=== PATIENT | female | born 1985 | race Caucasian/White ===

== ENCOUNTER 2018-10-17 17:28 | Emergency (ER) | payer SELFPAY ==
[~2018-10-17] VITALS: Ht 160 cm; Wt 78.5 kg
[2018-10-17 17:56] VITALS: BP 134/77
--- NOTE | 2018-10-17 18:04 | PHYS DOC ---
Adult General Chief Complaint Chief Complaint: DENTAL PROBLEM HPI HPI Patient is a 33 year old female currently 8 months 3 para 2 presenting to the ED today complaining of moderate left lower gum dental pain that began yesterday after she broke her tooth. Patient denies any fever or trismus. She states she has swelling to the left lower gum. She states eating exacerbates the pain. She describes the pain as sharp and intermittent. Review of Systems Review of Systems Constitutional: Denies fever or chills [] HENT: Reports left lower gum dental pain and swelling. GI: Denies abdominal pain, nausea, vomiting, bloody stools or diarrhea [] : Denies dysuria or hematuria [] Musculoskeletal: Denies back pain or joint pain [] Integument: Denies rash or skin lesions [] Neurologic: Denies headache, focal weakness or sensory changes [] All other systems were reviewed and found to be within normal limits, except as documented in this note. Physical Exam Physical Exam Constitutional: Well developed, well nourished, no acute distress, non-toxic appearance. [] HENT: Normocephalic, atraumatic, bilateral external ears normal, oropharynx moist, no oral exudates, nose normal. [] Tooth #21 is broken, scattered dental caries throughout. Left lower exterior cheek with swelling. Slight erythema noted along tooth #20 21,22. Abdomen: Gravid abdomen. Bowel sounds normal, soft, no tenderness, no masses, no pulsatile masses. [] Skin: Warm, dry, no erythema, no rash. [] Back: No tenderness, no CVA tenderness. [] Extremities: No tenderness, no cyanosis, no clubbing, ROM intact, no edema. [] Neurologic: Alert and oriented X 3, normal motor function, normal sensory function, no focal deficits noted. [] Psychologic: Affect normal, judgement normal, mood normal. [] EKG EKG [] Radiology/Procedures Radiology/Procedures [] Course & Med Decision Making Course & Med Decision Making Pertinent Labs and Imaging studies reviewed. (See chart for details) Patient has dental infection, she is currently . She was discharged with amoxicillin and hydrocodone for pain. Follow-up with her dentist in 1-2 weeks. Dragon Disclaimer Dragon Disclaimer This electronic medical record was generated, in whole or in part, using a voice recognition dictation system. Departure Departure Impression: Primary Impression: Dentalgia Additional Impression: Abscess, dental Disposition: HOME, SELF-CARE Condition: STABLE Referrals: NO PCP (PCP) follow up in 1 week with your dentist Patient Instructions: Dental Abscess Additional Instructions: You have dental abscess. Complete your antibiotics. Take the prescribed pain medicine as needed for pain. Follow-up with your dentist in 1-2 weeks. Scripts Hydrocodone/Apap 5-325 (NORCO 5-325 TABLET) 1 Each Tablet 1 TAB PO Q6HRS, #20 TAB Prov: JUDITH LAI APRN 10/17/18 Amoxicillin (AMOXICILLIN) 875 Mg Tablet 1 TAB PO BID, #20 TAB Prov: JUDITH LAI APRN 10/17/18 Problem Qualifiers JUDITH LAI APRN Oct 17, 2018 18:04
[2018-10-17] MEDS ORDERED: AMOX875T PO (18:09)
[2018-10-17] MEDS ORDERED: HYDR-3164 PO (18:09)
== END 2018-10-17 18:11 | disposition home or self-care (01) ==
LOC: ER 17:28
DX: O99.613 Diseases of the digestive system complicating pregnancy, third trimester (principal); S02.5XXA Fracture of tooth (traumatic), initial encounter for closed fracture; K04.7 Periapical abscess without sinus; K02.9 Dental caries, unspecified; Z3A.32 32 weeks gestation of pregnancy; X58.XXXA Exposure to other specified factors, initial encounter; Y93.89 Activity, other specified; Y92.89 Other specified places as the place of occurrence of the external cause; Y99.8 Other external cause status
CPT/HCPCS: 99283

== ENCOUNTER 2018-10-29 13:26 | Observation (INO) | payer OTHER ==
[~2018-10-29 13:26] MED LIST: AMOX875T PO; HYDR-3164 PO
[2018-10-29] MEDS ORDERED: IV RINGERS,LACTATED 1000ML 1,000 ML IV SCH (14:00)
[2018-10-29 14:26] LABS: BILIRUBIN,URINE NEGATIVE (NEG); COLOR,URINE YELLOW; NITRITE,URINE NEGATIVE (NEG); PROTEIN,URINE NEGATIVE (NEG-TRACE)
[2018-10-29 14:30] LABS: BARBITURATES NEG (NEG); BENZODIAZEPINES NEG (NEG); CANNABINOIDS NEG (NEG); COCAINE NEG (NEG); METHADONE NEG (NEG); OPIATES NEG (NEG); PHENCYCLIDINE NEG (NEG)
[2018-10-29 14:33] LABS: AMPHETAMINE/METHAMPHETAMINE NEG (NEG)
[2018-10-29 14:37] LABS: CLARITY,URINE HAZY
[2018-10-29 14:38] LABS: BACTERIA,URINE FEW /HPF (0-FEW); RBC,URINE 0 /HPF (0-2); SQUAMOUS EPITHELIAL CELL,UR MOD /LPF; WBC,URINE OCC /HPF (0-4)
== END 2018-10-29 16:10 | disposition home or self-care (01) ==
LOC: 3 SO LND 13:26
PROVIDERS: ADMIT Specialist; ATTEND Specialist
DX: O36.8130 Decreased fetal movements, third trimester, not applicable or unspecified (principal); O26.853 Spotting complicating pregnancy, third trimester; O26.893 Other specified pregnancy related conditions, third trimester; R10.9 Unspecified abdominal pain; Z3A.35 35 weeks gestation of pregnancy
CPT/HCPCS: 80307; 81001; G0378; G0379

== ENCOUNTER 2018-11-02 13:20 | Observation (INO) | payer OTHER ==
[~2018-11-02] VITALS: Ht 160 cm; Wt 79.8 kg
[2018-11-02] MEDS ORDERED: IV RINGERS,LACTATED 1000ML 1,000 ML IV PRN (14:15)
[2018-11-02 14:42] LABS: BILIRUBIN,URINE NEGATIVE (NEG); CLARITY,URINE CLOUDY; COLOR,URINE YELLOW; NITRITE,URINE NEGATIVE (NEG); PROTEIN,URINE NEGATIVE (NEG-TRACE)
[2018-11-02 14:46] LABS: BARBITURATES NEG (NEG); BENZODIAZEPINES NEG (NEG); CANNABINOIDS NEG (NEG); COCAINE NEG (NEG); METHADONE NEG (NEG); OPIATES NEG (NEG); PHENCYCLIDINE NEG (NEG)
[2018-11-02 14:47] LABS: BACTERIA,URINE MANY /HPF (0-FEW); RBC,URINE RARE /HPF (0-2); SQUAMOUS EPITHELIAL CELL,UR MANY /LPF; WBC,URINE RARE /HPF (0-4)
[2018-11-02 14:51] LABS: AMPHETAMINE/METHAMPHETAMINE NEG (NEG)
[2018-11-02 15:22] LABS: BASO # 0.1 x10^3/uL (0.0-0.2); BASO % 1 % (0-3); EOS # 0.3 x10^3/uL (0.0-0.7); EOS % 2 % (0-3); HEMATOCRIT 38.4 % (36.0-47.0); HEMOGLOBIN 12.2 g/dL (12.0-15.5); LYMPH # 2.6 x10^3/uL (1.0-4.8); LYMPH % 15 % (24-48); MEAN CORPUSCULAR HEMOGLOBIN 26 pg (25-35); MEAN CORPUSCULAR HGB CONC 32 g/dL (31-37); MEAN CORPUSCULAR VOLUME 81 fL (79-100); MONO # 1.4 x10^3/uL (0.0-1.1); MONO % 8 % (0-9); NEUT % 75 % (31-73); PLATELET COUNT 323 x10^3/uL (140-400); RED BLOOD COUNT 4.73 x10^6/uL (3.50-5.40); RED CELL DISTRIBUTION WIDTH 15.2 % (11.5-14.5); WHITE BLOOD COUNT 17.4 x10^3/uL (4.0-11.0)
[2018-11-02] MEDS ORDERED: hydrOXYzine PAMOATE 25 MG CAPSULE PO ONE (16:00)
[2018-11-02 16:09] LABS: % BANDS 3 % (0-9); % EOS 1 % (0-5); % LYMPHS 18 % (24-48); % MONOS 7 % (0-10); % SEGS 71 % (35-66)
[2018-11-02 16:10] LABS: PLT ESTIMATE ADEQUATE (ADEQUATE); POLYCHROMASIA SLIGHT
[2018-11-02] MEDS ORDERED: CITRIC ACID/SODIUM CITRATE 30 ML SOLUTION. PO ONE (16:30)
--- NOTE | 2018-11-02 18:28 | RAD ---
INDICATION: S/P Fall, BPP COMPARISON: None. FINDINGS: Limited ultrasound images performed of the uterus in order to calculate a biophysical profile score. The placenta is poorly seen secondary to the fetus obscuring. The biophysical profile score is 8 out of 8. Placenta is posterior. Amniotic fluid index 9.3. Cephalic presentation at time of exam. The cervix is 4.7 cm. heartbeat is 130. Estimate weight 2612 g IMPRESSION: 1. Intrauterine is identified in the cephalic position with estimated gestational age of 35 weeks and 0 days with estimated weight on the 72nd percentile. Positive heartbeat with biophysical profile score of 8 out of 8. Electronically signed by: Oswaldo Santizo MD (11/02/2018 6:25 PM) [facility]
== END 2018-11-02 18:50 | disposition home or self-care (01) ==
LOC: 3 SO LND 13:20
PROVIDERS: ADMIT Specialist; ATTEND Specialist
DX: O26.893 Other specified pregnancy related conditions, third trimester (principal); G47.00 Insomnia, unspecified; W01.0XXA Fall on same level from slipping, tripping and stumbling without subsequent striking against object, initial encounter; Y93.89 Activity, other specified; Y92.89 Other specified places as the place of occurrence of the external cause; Y99.8 Other external cause status; Z3A.33 33 weeks gestation of pregnancy
CPT/HCPCS: 76805; 80307; 81001; 85007; 85025; 86592; 86703; 86762; 86850; 86900; 86901; 87086; 87340; 87653; G0378; G0379; Q0177; 36415

== ENCOUNTER 2018-11-05 09:12 | Observation (INO) | payer OTHER ==
[2018-11-05 10:28] LABS: AMNIO PT NEGATIVE
== END 2018-11-05 11:10 | disposition home or self-care (01) ==
LOC: 3 SO LND 09:12
PROVIDERS: ADMIT Specialist; ATTEND Specialist
DX: O42.90 Premature rupture of membranes, unspecified as to length of time between rupture and onset of labor, unspecified weeks of gestation (principal); Z3A.00 Weeks of gestation of pregnancy not specified
CPT/HCPCS: 36415; 84112; G0378; G0379

== ENCOUNTER 2018-11-08 15:55 | Observation (INO) | payer OTHER ==
[2018-11-08] MEDS ORDERED: IV RINGERS,LACTATED 500ML 500 ML IV PRN (16:30)
[2018-11-08 16:39] LABS: BILIRUBIN,URINE NEGATIVE (NEG); CLARITY,URINE CLOUDY; COLOR,URINE YELLOW; NITRITE,URINE NEGATIVE (NEG); PH,URINE 6.5; PROTEIN,URINE NEGATIVE (NEG-TRACE)
[2018-11-08 16:48] LABS: SQUAMOUS EPITHELIAL CELL,UR MOD /LPF
[2018-11-08 16:49] LABS: AMORPHOUS SEDIMENT,UR PRESENT /HPF; BACTERIA,URINE FEW /HPF (0-FEW); RBC,URINE 0 /HPF (0-2); YEAST,URINE PRESENT /HPF
== END 2018-11-08 17:20 | disposition home or self-care (01) ==
LOC: 3 SO LND 15:55
PROVIDERS: ADMIT Specialist; ATTEND Specialist
DX: O62.9 Abnormality of forces of labor, unspecified (principal); Z3A.36 36 weeks gestation of pregnancy
CPT/HCPCS: 81001; 87086; G0379

== ENCOUNTER 2018-11-17 08:04 | Observation (INO) | payer OTHER ==
[~2018-11-17] VITALS: Ht 157.5 cm; Wt 80.7 kg
[2018-11-17 09:00] LABS: BILIRUBIN,URINE NEGATIVE (NEG); CLARITY,URINE CLOUDY; COLOR,URINE YELLOW; NITRITE,URINE NEGATIVE (NEG); PROTEIN,URINE NEGATIVE (NEG-TRACE)
[2018-11-17 09:06] LABS: BARBITURATES NEG (NEG); BENZODIAZEPINES NEG (NEG); CANNABINOIDS NEG (NEG); COCAINE NEG (NEG); METHADONE NEG (NEG); OPIATES NEG (NEG); PHENCYCLIDINE NEG (NEG)
[2018-11-17 09:12] LABS: AMPHETAMINE/METHAMPHETAMINE NEG (NEG)
[2018-11-17 09:52] LABS: AMORPHOUS SEDIMENT,UR PRESENT /HPF; SQUAMOUS EPITHELIAL CELL,UR MOD /LPF
[2018-11-17 09:53] LABS: BACTERIA,URINE 0 /HPF (0-FEW); RBC,URINE OCC /HPF (0-2); WBC,URINE OCC /HPF (0-4)
== END 2018-11-17 10:00 | disposition home or self-care (01) ==
LOC: 3 SO LND 08:04
PROVIDERS: ADMIT Specialist; ATTEND Specialist
DX: O62.9 Abnormality of forces of labor, unspecified (principal); Z3A.38 38 weeks gestation of pregnancy
CPT/HCPCS: 80307; 81001; G0378; G0379

== ENCOUNTER 2018-11-21 00:04 | Inpatient (IN) | payer OTHER ==
[~2018-11-21] VITALS: Ht 157.5 cm; Wt 81.2 kg
[2018-11-21 00:26] LABS: BILIRUBIN,URINE NEGATIVE (NEG); CLARITY,URINE CLEAR; COLOR,URINE YELLOW; NITRITE,URINE NEGATIVE (NEG); PROTEIN,URINE NEGATIVE (NEG-TRACE)
[2018-11-21 00:30] LABS: BACTERIA,URINE MODERATE /HPF (0-FEW); RBC,URINE OCC /HPF (0-2); SQUAMOUS EPITHELIAL CELL,UR MOD /LPF
[2018-11-21 00:31] LABS: BARBITURATES NEG (NEG); BENZODIAZEPINES NEG (NEG); CANNABINOIDS NEG (NEG); COCAINE NEG (NEG); METHADONE NEG (NEG); OPIATES NEG (NEG); PHENCYCLIDINE NEG (NEG)
[2018-11-21 00:33] LABS: AMPHETAMINE/METHAMPHETAMINE NEG (NEG)
[2018-11-21] MEDS: IV RINGERS,LACTATED 1000ML 1,000 ML IV SCH ×2 (01:34→12:44)
[2018-11-21] MEDS ORDERED: IV RINGERS,LACTATED 1000ML 1,000 ML IV SCH ×2 (01:37→09:43)
[2018-11-21] MEDS ORDERED: OXYTOCIN 30 UNIT/500 ML PREMIX 500 ML IV PRN ×2 (01:45→15:30)
[2018-11-21] MEDS ORDERED: TERBUTALINE 1 MG/ML VIAL. SQ PRN (01:45)
[2018-11-21] MEDS ORDERED: fentaNYL PF VIAL 100 MCG/2 ML VIAL IV PRN (01:45)
[2018-11-21] MEDS ORDERED: LIDOCAINE 1% PF 30 ML VIAL. INJ PRN (01:45)
[2018-11-21] MEDS ORDERED: BUTORPHANOL 2 MG/ML VIAL. IV PRN ×2 (01:45)
[2018-11-21] MEDS ORDERED: 0.9 % SODIUM CHLORIDE 10 ML DISP.SYRIN. IV PRN ×2 (01:45→15:30)
[2018-11-21 01:56] VITALS: BP 116/76
[2018-11-21] MEDS ORDERED: AMPICILLIN SODIUM 2 GM in IV NORMAL SALINE 100ML 100 ML IV ONE (02:00)
[2018-11-21 02:02] LABS: BASO # 0.2 x10^3/uL (0.0-0.2); BASO % 1 % (0-3); EOS # 0.5 x10^3/uL (0.0-0.7); EOS % 4 % (0-3); HEMATOCRIT 34.2 % (36.0-47.0); HEMOGLOBIN 11.1 g/dL (12.0-15.5); LYMPH # 2.5 x10^3/uL (1.0-4.8); LYMPH % 21 % (24-48); MEAN CORPUSCULAR HEMOGLOBIN 26 pg (25-35); MEAN CORPUSCULAR HGB CONC 32 g/dL (31-37); MEAN CORPUSCULAR VOLUME 79 fL (79-100); MONO # 0.7 x10^3/uL (0.0-1.1); MONO % 6 % (0-9); NEUT # 8.4 x10^3uL (1.8-7.7); NEUT % 68 % (31-73); PLATELET COUNT 291 x10^3/uL (140-400); RED BLOOD COUNT 4.35 x10^6/uL (3.50-5.40); RED CELL DISTRIBUTION WIDTH 17.2 % (11.5-14.5); WHITE BLOOD COUNT 12.3 x10^3/uL (4.0-11.0)
--- NOTE | 2018-11-21 03:59 | PDOC1 ---
OB - History Hx of Present Care: Good Care Ultrasounds: Normal mid trimester US Obstetrical Complications: None Medical Complications: None Past Family/Social History * Past Medical, Surgical, Family and Obstetric Histories reviewed from chart. Blood Type: O+ Rubella: Immune RPR/VDRL: Negative GBS Status: Positive HBsAG: Negative OB - Chief Complaint & HPI Date of Admission: Date of Admission: Nov 21, 2018 at 00:04 Chief Complaint/History : 5 Para: 3 EDC: November 30, 2018 Reason for admission: rupture of membranes Admission Nurse Assessment Rev: Yes OB - Admission Exam Physical Exam Vitals: VS - Last 72 Hours, by Label Date Time Temp Pulse Resp B/P (MAP) Pulse Ox O2 Delivery O2 Flow Rate FiO2 11/21/18 01:56 97.5 97 18 116/76 (89) Room Air 97.5 HEENT: Normal, Nasal Mucosa Normal, Oropharynx Normal, Moist Membranes, Fontanelles Normal Heart: Regular Rate Lungs: Clear, Equal Abdomen: Gravid Extremities: Normal Pulses, No tenderness or swelling Reflexes: Normal Cervical Dilatation: 2cm Effacement: 50% Station: -2 Membranes: Ruptured Amniotic Fluid: Clear Heart Rate: Normal Accelerations: Accelerations Present Short Term Variability: Present Contractions on Admission: 6-10 Minutes Apart Intensity: Moderate Assessment/Plan Assessment/Plan TIUP SROM ACSVD ALIX DENSON MD Nov 21, 2018 03:59
[2018-11-21] MEDS ORDERED: OXYTOCIN PREMIX 30 UNIT/500 ML BAG. IV ONE (07:30)
[2018-11-21] MEDS ORDERED: ROPIVacaine 0.2% PF 10 ML VIAL. ONE ×3 (09:31→12:15)
[2018-11-21] MEDS ORDERED: fentaNYL PF VIAL 100 MCG/2 ML VIAL EPI PRN (09:45)
[2018-11-21] MEDS ORDERED: ONDANSETRON PF 4 MG/2 ML VIAL. IV PRN (09:45)
[2018-11-21] MEDS ORDERED: ROPIVacaine 0.2% IN 0.9%NACL PF 40 MG/20 ML DISP.SYRIN. EPID PRN (09:45)
[2018-11-21] MEDS ORDERED: NALOXONE 0.4 MG/ML VIAL. IV PRN (09:45)
[2018-11-21] MEDS: AMPICILLIN SODIUM 1 GM in IV NORMAL SALINE 50ML 50 ML IV SCH ×2 (09:54→12:53)
[2018-11-21] MEDS: L&D EPIDURAL SYRINGE 50 ML EPID PRN ×2 (09:55→12:05)
[2018-11-21] MEDS ORDERED: LIDOCAINE 2% PF 5 ML VIAL. ONE ×2 (11:48→11:53)
[2018-11-21] MEDS: ePHEDrine PF IN SALINE 50 MG/10 ML SYRINGE. IV PRN ×2 (12:42→12:43)
[2018-11-21] MEDS ORDERED: ACETAMINOPHEN 325 MG TABLET. PO PRN (15:30)
[2018-11-21] MEDS ORDERED: HYDROCORTISONE 1% TOPICAL OINTMENT 30GM TUBE. TP PRN (15:30)
[2018-11-21] MEDS ORDERED: diphenhydrAMINE HCL 25 MG CAPSULE PO PRN (15:30)
[2018-11-21] MEDS ORDERED: SIMETHICONE 80 MG TAB.CHEW PO PRN (15:30)
[2018-11-21] MEDS ORDERED: MAGNESIUM HYDROXIDE 2,400 MG/30 ML ORAL.SUSP. PO PRN (15:30)
[2018-11-21] MEDS ORDERED: PHENYLEPH/MINERAL OIL/PETROLAT RECTAL OINTMENT 28GM TUBE. RC PRN (15:30)
[2018-11-21] MEDS ORDERED: ZOLPIDEM 5 MG TABLET. PO PRN (15:30)
[2018-11-21] MEDS ORDERED: BENZOCAINE 20% TOPICAL AEROSOL SPRAY 57GM CAN. TP PRN (15:30)
[2018-11-21] MEDS ORDERED: MAG HYDROX/ALUMINUM HYD/SIMETH 30 ML ORAL.SUSP PO PRN (15:30)
[2018-11-21] MEDS ORDERED: FERROUS SULFATE 325 MG TABLET. PO SCH (17:00)
[2018-11-21] MEDS: IBUPROFEN 400 MG TABLET. PO PRN (22:37)
[2018-11-21 23:00] VITALS: BP 114/61
[2018-11-22] MEDS: oxyCODONE/APAP 5/325 1 TAB TABLET PO PRN ×2 (01:11→05:02)
[2018-11-22] MEDS ORDERED: HYDROcodone/APAP 5/325MG 1 TAB TABLET PO PRN (01:15)
[2018-11-22 05:33] VITALS: BP 98/65
--- NOTE | 2018-11-22 08:41 | PDOC ---
OB Progress Note Date of Service 11/22/18 Time of Evaluation 0835 Notes Pt. feeling well. Pain controlled. No complaints. Lab Laboratory Tests Test 11/21/18 00:20 11/21/18 01:50 11/22/18 07:55 Urine Collection Type Unknown Urine Color Yellow Urine Clarity Clear Urine pH 7.0 Urine Specific [place] 1.010 Urine Protein Negative mg/dL (NEG-TRACE) Urine Glucose (UA) Negative mg/dL (NEG) Urine Ketones (Stick) Negative mg/dL (NEG) Urine Blood Negative (NEG) Urine Nitrite Negative (NEG) Urine Bilirubin Negative (NEG) Urine Urobilinogen Dipstick 1.0 mg/dL (0.2 mg/dL) Urine Leukocyte Esterase Small (NEG) Urine RBC Occ /HPF (0-2) Urine WBC 5-10 /HPF (0-4) Urine Squamous Epithelial Cells Mod /LPF Urine Transitional Epithelial Cells Occ /LPF Urine Bacteria Moderate /HPF (0-FEW) Urine Mucus Slight /LPF Urine Opiates Screen Neg (NEG) Urine Methadone Screen Neg (NEG) Urine Barbiturates Neg (NEG) Urine Phencyclidine Screen Neg (NEG) Urine Amphetamine/Methamphetamine Neg (NEG) Urine Benzodiazepines Screen Neg (NEG) Urine Cocaine Screen Neg (NEG) Urine Cannabinoids Screen Neg (NEG) Urine Ethyl Alcohol Neg (NEG) White Blood Count 12.3 x10^3/uL (4.0-11.0) Red Blood Count 4.35 x10^6/uL (3.50-5.40) Hemoglobin 11.1 g/dL (12.0-15.5) Hematocrit 34.2 % (36.0-47.0) 30.6 % (36.0-47.0) Mean Corpuscular Volume 79 fL (79-100) Mean Corpuscular Hemoglobin 26 pg (25-35) Mean Corpuscular Hemoglobin Concent 32 g/dL (31-37) Red Cell Distribution Width 17.2 % (11.5-14.5) Platelet Count 291 x10^3/uL (140-400) Neutrophils (%) (Auto) 68 % (31-73) Lymphocytes (%) (Auto) 21 % (24-48) Monocytes (%) (Auto) 6 % (0-9) Eosinophils (%) (Auto) 4 % (0-3) Basophils (%) (Auto) 1 % (0-3) Neutrophils # (Auto) 8.4 x10^3uL (1.8-7.7) Lymphocytes # (Auto) 2.5 x10^3/uL (1.0-4.8) Monocytes # (Auto) 0.7 x10^3/uL (0.0-1.1) Eosinophils # (Auto) 0.5 x10^3/uL (0.0-0.7) Basophils # (Auto) 0.2 x10^3/uL (0.0-0.2) Treponema pallidum Antibody Nonreactive (Nonreactive) Laboratory Tests Test 11/22/18 07:55 Hematocrit 30.6 % (36.0-47.0) Medications Current Medications Ringer's Solution 1,000 ml @ 125 mls/hr Q8H IV Last administered on 11/21/18at 12:44; Start 11/21/18 at 00:10; Stop 11/22/18 at 07:41; Status DC Sodium Chloride (Normal Saline Flush) 3 ml QSHIFT PRN IV AFTER MEDS AND BLOOD DRAWS; Start 11/21/18 at 01:45; Stop 11/22/18 at 07:41; Status DC Ringer's Solution 1,000 ml @ 125 mls/hr Q8H IV Last administered on 11/21/18at 09:56; Start 11/21/18 at 01:37; Stop 11/22/18 at 07:41; Status DC Butorphanol Tartrate (Stadol) 1 mg PRN Q1HR PRN IV mild to moderate labor pain; Start 11/21/18 at 01:45; Stop 11/22/18 at 07:41; Status DC Butorphanol Tartrate (Stadol) 2 mg PRN Q1HR PRN IV Severe labor pain; Start 11/21/18 at 01:45; Stop 11/22/18 at 07:41; Status DC Fentanyl Citrate (Fentanyl 2ml Vial) 100 mcg PRN Q30MIN PRN IV Severe pain; Start 11/21/18 at 01:45; Stop 11/22/18 at 07:41; Status DC Terbutaline Sulfate (Brethine) 0.25 mg 1X PRN PRN SQ SEE COMMENTS; Start 11/21/18 at 01:45; Stop 11/22/18 at 01:44; Status DC Lidocaine HCl (Xylocaine 1% Pf 30ml Vial) 30 ml 1X PRN PRN INJ SEE COMMENTS; Start 11/21/18 at 01:45; Stop 11/22/18 at 07:41; Status DC Ampicillin Sodium 2 gm/Sodium Chloride 100 ml @ 200 mls/hr 1X ONCE IV Last administered on 11/21/18at 10:00; Start 11/21/18 at 02:00; Stop 11/21/18 at 02:29; Status DC Ampicillin Sodium 1 gm/Sodium Chloride 50 ml @ 100 mls/hr Q4H IV Last administered on 11/21/18at 12:53; Start 11/21/18 at 06:00; Stop 11/22/18 at 07:41; Status DC Oxytocin/Sodium Chloride 500 ml @ 0 mls/hr CONT PRN PRN IV Post delivery bleeding Last administered on 11/21/18at 09:56; Start 11/21/18 at 01:45; Stop 11/22/18 at 07:41; Status DC Oxytocin/Sodium Chloride (Oxytocin Premix Infusion) 30 unit STK-MED ONCE IV ; Start 11/21/18 at 07:30; Stop 11/21/18 at 08:43; Status DC Ropivacaine (Naropin 0.2%) 10 ml STK-MED ONCE .ROUTE ; Start 11/21/18 at 09:31; Stop 11/22/18 at 07:41; Status DC Ringer's Solution 1,000 ml @ 1,000 mls/hr Q1H IV ; Start 11/21/18 at 09:43; Stop 11/21/18 at 10:42; Status DC Ephedrine Sulfate (ePHEDrine PF IN SALINE SYRINGE) 10 mg PRN Q2MIN PRN IV IF SBP<90 Last administered on 11/21/18at 12:43; Start 11/21/18 at 09:45; Stop 11/22/18 at 07:41; Status DC Naloxone HCl (Narcan) 0.4 mg PRN Q1MIN PRN IV SEE COMMENTS; Start 11/21/18 at 09:45 Fentanyl Citrate (Fentanyl 2ml Vial) 100 mcg PRN 1X PRN EPI FOR ANESTHESIA; Start 11/21/18 at 09:45; Stop 11/22/18 at 07:41; Status DC Ropivacaine/ Fentanyl/NS 50 ml @ 14 mls/hr CONT PRN EPID PAIN Last administered on 11/21/18at 12:05; Start 11/21/18 at 09:30; Stop 11/22/18 at 07:41; Status DC Ondansetron HCl (Zofran) 4 mg PRN Q6HRS PRN IV NAUSEA/VOMITING; Start 11/21/18 at 09:45; Stop 11/22/18 at 07:41; Status DC Ropivacaine/ Sodium Chloride (ROPIVacaine 0.2% - 0.9%NACL PF) 40 mg PRN 1X PRN EPID SEE COMMENTS; Start 11/21/18 at 09:45; Stop 11/22/18 at 07:41; Status DC Lidocaine HCl (Lidocaine Pf 2% Vial) 5 ml STK-MED ONCE .ROUTE ; Start 11/21/18 at 11:48; Stop 11/22/18 at 07:41; Status DC Lidocaine HCl (Lidocaine Pf 2% Vial) 5 ml STK-MED ONCE .ROUTE ; Start 11/21/18 at 11:53; Stop 11/22/18 at 07:41; Status DC Ropivacaine (Naropin 0.2%) 10 ml STK-MED ONCE .ROUTE ; Start 11/21/18 at 12:15; Stop 11/22/18 at 07:41; Status DC Sodium Chloride (Normal Saline Flush) 10 ml QSHIFT PRN IV AFTER MEDS AND BLOOD DRAWS; Start 11/21/18 at 15:30; Stop 11/22/18 at 07:41; Status DC Oxytocin/Sodium Chloride 500 ml @ 62.5 mls/hr CONT PRN IV SEE I/O RECORD; Start 11/21/18 at 15:30; Stop 11/21/18 at 23:29; Status DC Acetaminophen (Tylenol) 650 mg PRN Q6HRS PRN PO MILD PAIN / TEMP; Start 11/21/18 at 15:30 Ibuprofen (Motrin) 800 mg PRN Q8HRS PRN PO INFLAMMATION/PAIN PREVENTION Last administered on 11/21/18at 22:37; Start 11/21/18 at 15:30 Magnesium Hydroxide (Milk Of Magnesia) 2,400 mg PRN DAILY PRN PO CONSTIPATION; Start 11/21/18 at 15:30 Al Hydroxide/Mg Hydroxide (Mylanta Plus Xs) 30 ml PRN Q4HRS PRN PO HEARTBURN / GAS; Start 11/21/18 at 15:30 Simethicone (Gas-X) 80 mg PRN AFTMEALHC PRN PO GAS / BLOATING; Start 11/21/18 at 15:30 Diphenhydramine HCl (Benadryl) 25 mg PRN Q6HRS PRN PO ITCHING; Start 11/21/18 at 15:30 Benzocaine (Americaine) 1 spray PRN QID PRN TP TOPICAL PAIN; Start 11/21/18 at 15:30 Phenyleph/Shark Oil/Min Oil/Petrol (Preparation H) 1 ismael PRN QID PRN RC RECTAL PAIN; Start 11/21/18 at 15:30 Hydrocortisone (Cortaid) 1 ismael PRN QID PRN TP PERINEAL PAIN; Start 11/21/18 at 15:30 Ferrous Sulfate (Feosol) 325 mg BIDWMEALS PO ; Start 11/21/18 at 17:00 Zolpidem Tartrate (Ambien) 5 mg PRN QHS PRN PO INSOMNIA, MAY REPEAT X1; Start 11/21/18 at 15:30 Info (Do NOT chart on this placeholder) 1 ea 1X PRN PRN MC SEE COMMENTS; Start 11/21/18 at 15:30 Oxycodone/ Acetaminophen (Percocet 5/325) 1 tab PRN Q4HRS PRN PO SEVERE PAIN Last administered on 11/22/18at 05:02; Start 11/22/18 at 01:00 Acetaminophen/ Hydrocodone Bitart (Lortab 5/325) 1 tab PRN Q4HRS PRN PO MODERATE PAIN; Start 11/22/18 at 01:15 Active Scripts Active [place] 5-325 Tablet (Acetaminophen/Hydrocodone Bitart) 1 Each Tablet 1 Tab PO Q6HRS Amoxicillin 875 Mg Tablet 1 Tab PO BID Exam Abd: soft, non tender, fundus firm Assessment PPD#1 s/p Plan of Care: Continue current Tx, ЕЛЕНА Brunson Jr, MD November 22, 2018 08:40
[2018-11-22 09:57] VITALS: BP 98/65
[2018-11-22 15:00] VITALS: BP 110/66
[2018-11-22] MEDS ORDERED: NICOTINE 21MG PATCH. TD PRN (20:00)
[2018-11-22] MEDS: IBUPROFEN 400 MG TABLET. PO PRN (20:05)
[2018-11-22 22:54] VITALS: BP 102/66
[2018-11-23 06:08] VITALS: BP 139/91
--- NOTE | 2018-11-23 10:44 | PDOC3 ---
OB DISCHARGE SUMMARY DATE OF ADMISSION: 11/21/18 DATE OF DISCHARGE: 11/23/18 REASON FOR ADMISSION: Onset of labor INTRAPARTUM PROCEDURES: Spontanous Vag Deliv DISCHARGE DIAGNOSIS: Term Delivered DISCHARGE INFORMATION: Activity (ad aniket), Diet (regular), Instructions (pelvic rest x 6 wks) HOSPITAL COURSE Term gestation delivered vaginally without complications. ЕЛЕНА ORELLANA Jr, MD November 23, 2018 10:44
[2018-11-23] MEDS ORDERED: IBUP-1027 PO (10:45)
--- NOTE | 2018-11-23 10:45 | DISCH ---
DISCHARGE INSTRUCTIONS Condition on Discharge Condition on Discharge: Stable Activity After Discharge Activity Instructions for Disc: Activity as tolerated Lifting Instructions after Dis: No heavy lifting Driving Instructions after Dis: Do not drive today Diet after Discharge Diet after Discharge: Regular Contacting the DRIsabela after DC Call your doctor for: Concerns you may have Follow-Up Follow up with: Dr. Rivas in 1 week ЕЛЕНА ORELLANA Jr, MD November 23, 2018 10:45
--- NOTE | 2018-11-23 11:07 | NUR ---
home instructions gone over with pt and signed no questions on home care. keep appt [address] louis
[2018-11-23 11:08] VITALS: BP 129/88
--- NOTE | 2018-11-23 14:32 | NUR ---
SS following up with referral regarding "limited care." SS received report from infant and mother RN that mother is giving conflicting stories regarding the custody of her three other children and are stating that mother is having difficulties remembering there dates of . Infant RN also reported that mother stated that one of her children was adopted and the others are not in her custody. SS met with infants mother to assess circumstances surrounding the referral. Mother reported that she recently moved to [place] from [place] and received Medicaid once coming to [place]. Mother reported that she moved here to be with her sister and her father will be moving here as well. Mother only reported having two children and denied having a third. Mother reported that her 15 and 8 year old child are in her custody and participate in [employer] and [employer] classes. Mother reported that her 15 and 8 year old are insured through there father. She reported that infants father was different from the other children. Mother denied history of substance use but medical records indicate that mother has a history of xanax abuse in 2013. Mother denied history of mental health as well. Mother reported that she does not currently have WIC in place and was going to call for an appointment. SS provided her the number. 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 Mother reported having no Gummed Tape Press Operator for her children at this time and requested and appointment be scheduled for infant at [facility] prior to leaving the hospital. Mother reported having a car seat and all needed supplies at home for infant. DCF hotline report made due to conflicting reports in regards to the custody and location of her other children, intake # [id number]. Infant and mother RN notified.
[2018-11-23] MEDS: IBUPROFEN 400 MG TABLET. PO PRN (16:22)
[2018-11-23 16:24] VITALS: BP 118/82
== END 2018-11-23 16:27 | disposition home or self-care (01) | DRG 806 ==
LOC: OBSVTOIN 00:04 → 3 SO LND 00:04 → 3 NORTH 20:18
PROVIDERS: ADMIT Specialist; ATTEND Specialist
PROC: 10E0XZZ Delivery of Products of Conception, External Approach (ICD-10-PCS; principal; 2018-11-21)
DX: O99.02 Anemia complicating childbirth (principal); D62 Acute posthemorrhagic anemia; Z37.0 Single live birth; Z3A.40 40 weeks gestation of pregnancy; Z88.8 Allergy status to other drugs, medicaments and biological substances
CPT/HCPCS: 36415; 80307; 81001; 85014; 85025; 86592; 86850; 86900; 86901; 87086; J0171; J0290; J2590; J2795; J7120

== ENCOUNTER 2018-12-23 11:37 | Emergency (ER) | payer OTHER ==
[~2018-12-23] VITALS: Ht 160 cm; Wt 72.6 kg
[~2018-12-23 11:37] MED LIST changes: +IBUP-1027 PO
[2018-12-23 11:45] VITALS: BP 115/78
[2018-12-23 11:59] LABS: BILIRUBIN,URINE NEGATIVE (NEG); CLARITY,URINE CLEAR; COLOR,URINE YELLOW; NITRITE,URINE NEGATIVE (NEG); PH,URINE 7.5; PROTEIN,URINE NEGATIVE (NEG-TRACE); UROBILINOGEN,URINE 0.2 mg/dL (0.2 mg/dL)
[2018-12-23 12:09] LABS: BACTERIA,URINE 0 /HPF (0-FEW); RBC,URINE 0 /HPF (0-2); SQUAMOUS EPITHELIAL CELL,UR FEW /LPF; WBC,URINE 0 /HPF (0-4)
[2018-12-23] MEDS ORDERED: METR500T PO (12:13)
--- NOTE | 2018-12-23 12:13 | PHYS DOC ---
Past Medical History Past Medical History: No Pertinent History Past Surgical History: No Surgical History Alcohol Use: None Drug Use: None Adult General Chief Complaint Chief Complaint: PELVIC PAIN HPI HPI Patient is a 33 year old female who presents to the ED today complaining of vaginal discharge and concern she could have BV. Patient states she's had this multiple times. She states she's had discharge for 3 days and it smells like BV. She states she gave a month ago. She states the but is at the [facility] with the baby unfortunately the baby is fussy and needs to be breast- fed so she has to leave the ED right now. I offered a prescription for Flagyl before she leaves. Review of Systems Review of Systems Constitutional: Denies fever or chills [] GI:Reports vag discharge. Denies abdominal pain, nausea, vomiting, bloody stools or diarrhea [] : Denies dysuria or hematuria [] Musculoskeletal: Denies back pain or joint pain [] Integument: Denies rash or skin lesions [] Neurologic: Denies headache, focal weakness or sensory changes [] All other systems were reviewed and found to be within normal limits, except as documented in this note. Allergies Allergies Allergies Coded Allergies Type Severity Reaction Last Updated Verified naproxen Allergy Severe anaphylaxis 11/21/18 Yes Physical Exam Physical Exam Constitutional: Well developed, well nourished, no acute distress, non-toxic appearance. [] Abdomen: Bowel sounds normal, soft, no tenderness, no masses, no pulsatile masses. [] Pelvic exam-differed. Skin: Warm, dry, no erythema, no rash. [] Back: No tenderness, no CVA tenderness. [] Extremities: No tenderness, no cyanosis, no clubbing, ROM intact, no edema. [] Neurologic: Alert and oriented X 3, normal motor function, normal sensory function, no focal deficits noted. [] Psychologic: Affect normal, judgement normal, mood normal. [] Current Patient Data Lab Values Laboratory Tests Test 12/23/18 11:40 12/23/18 11:49 Urine Collection Type Unknown Urine Color Yellow Urine Clarity Clear Urine pH 7.5 Urine Specific [place] 1.010 Urine Protein Negative mg/dL (NEG-TRACE) Urine Glucose (UA) Negative mg/dL (NEG) Urine Ketones (Stick) Negative mg/dL (NEG) Urine Blood Negative (NEG) Urine Nitrite Negative (NEG) Urine Bilirubin Negative (NEG) Urine Urobilinogen Dipstick 0.2 mg/dL (0.2 mg/dL) Urine Leukocyte Esterase Negative (NEG) Urine RBC 0 /HPF (0-2) Urine WBC 0 /HPF (0-4) Urine Squamous Epithelial Cells Few /LPF Urine Bacteria 0 /HPF (0-FEW) POC Urine HCG, Qualitative Hcg negative (Negative) EKG EKG [] Radiology/Procedures Radiology/Procedures [] Course & Med Decision Making Course & Med Decision Making Pertinent Labs and Imaging studies reviewed. (See chart for details) This is a 33-year-old female patient presenting to the ED today concerned she could have BV. She gave bath a month ago, she unfortunately left the baby with the , the baby is fussy, she has to leave the ED to go breast-feed. I offered a prescription for Flagyl. Pelvic exam was not done. She states she has an COMMUNICATION STUDIES PROFESSOR and can follow-up. Dragon Disclaimer Dragon Disclaimer This electronic medical record was generated, in whole or in part, using a voice recognition dictation system. Departure Departure Impression: Primary Impression: Bacterial vaginosis Disposition: HOME, SELF-CARE Condition: STABLE Referrals: NO PCP (PCP) Follow-up with your COMMUNICATION STUDIES PROFESSOR next week Patient Instructions: Bacterial Vaginosis, Itan-sr-Olef Additional Instructions: You were given prescription for Flagyl, ensure you complete it. Follow-up with the COMMUNICATION STUDIES PROFESSOR next week. Scripts Metronidazole (FLAGYL) 500 Mg Tablet 1 TAB PO BID, #14 TAB Prov: JUDITH LAI APRN 12/23/18 JUDITH LAI APRN Dec 23, 2018 12:13
== END 2018-12-23 12:41 | disposition home or self-care (01) ==
LOC: ER 11:37
DX: N76.0 Acute vaginitis (principal); B96.89 Other specified bacterial agents as the cause of diseases classified elsewhere; Z88.5 Allergy status to narcotic agent
CPT/HCPCS: 81001; 81025; 99283

== ENCOUNTER 2021-04-22 05:54 | Emergency (ER) | payer SELFPAY ==
[~2021-04-22 05:54] MED LIST changes: +METR500T PO
== END 2021-04-22 06:17 | disposition left against medical advice (07) ==
LOC: ER 05:54
DX: F10.10 Alcohol abuse, uncomplicated (principal); Y90.9 Presence of alcohol in blood, level not specified; Z53.21 Procedure and treatment not carried out due to patient leaving prior to being seen by health care provider